=== PATIENT | male | born 1970 | race Caucasian/White ===

== ENCOUNTER 2017-11-23 19:17 | Emergency (ER) | payer SELFPAY ==
[2017-11-23] MEDS: KETOROLAC TROMETHAMINE 60 MG/2 ML VIAL IM ONE (19:30)
[2017-11-23 19:35] VITALS: BP 152/98
--- NOTE | 2017-11-23 20:23 | Diagnostic Imaging Report ---
JONANA DEJESUS (FORENSIC SCIENTIST) - ER [facility] [address] [address] Report Submission Date: Nov 23, 2017 8:04:31 PM CDT Patient Study Name: ROSY STOUT Date: Nov 23, 2017 7:35:06 PM CDT Modality Type: CT\SR Gender: M Description: CT BRAIN W/O CONTRAST : 74 Institution: [facility] Physician: JOANNA DEJESUS ([place]) - ER CT head without contrast HISTORY Headache, dizziness. TECHNIQUE Images through the brain were obtained without contrast. FINDINGS There is no mass, midline shift, obstructive hydrocephalous or acute intracranial hemorrhage. The ventricles are normal. No extra-axial fluid collection is identified. IMPRESSION Normal. Electronically signed on Nov 23, 2017 8:04:31 PM CDT by: Chivo SMITH
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
== END 2017-11-23 20:35 | disposition home or self-care (01) ==
LOC: ED 19:17
DX: S40.212A Abrasion of left shoulder, initial encounter (principal); R07.89 Other chest pain; S20.319A Abrasion of unspecified front wall of thorax, initial encounter; V89.2XXA Person injured in unspecified motor-vehicle accident, traffic, initial encounter; Y92.9 Unspecified place or not applicable; Y93.9 Activity, unspecified; Y99.9 Unspecified external cause status
CPT/HCPCS: 70450; 72125; J1885; 96372; 99284